=== PATIENT | male | born 1970 | race American Indian/Alaskan Native ===

== ENCOUNTER 2021-03-01 19:11 | Emergency (ER) | payer SELFPAY ==
--- NOTE | 2021-03-01 19:30 | Emergency Department Report ---
ED Seizure HPI - General Stated Complaint: SEIZURE Time Seen by Provider: 03/01/21 19:21 - History of Present Illness Initial Comments: Patient is 50 years old male with history of seizure on Keppra 750 mg twice daily. Patient brought to the emergency room via EMS from home for evaluation after a witnessed generalized tonic-clonic seizure. Patient stated that he went today to refill his Keppra. Patient denied any head injury. No fever or chills. Patient denied any headache, neck pain, weakness numbness or tingling sensation. MD Complaint: seizure -: Sudden Description of Episode: loss of consciousness, tonic-clonic movement, post-event confusion Witnessed:: Yes Trauma: No Seizure History: known seizure disorder Place: home Possible Precipitating Event: none Associated Symptoms: denies other symptoms Treatments Prior to Arrival: none - Related Data Allergies Allergy/AdvReac Type Severity Reaction Status Date / Time No Known Allergies Allergy Verified 03/01/21 19:39 ED Review of Systems ROS: Stated complaint: SEIZURE Other details as noted in HPI Comment: All other systems reviewed and negative Constitutional: denies: chills, fever Respiratory: denies: cough, shortness of breath, SOB with exertion Cardiovascular: denies: chest pain, palpitations Gastrointestinal: denies: abdominal pain, nausea, vomiting Musculoskeletal: denies: back pain Neurological: denies: headache, weakness ED Physical Exam - General General appearance: alert, in no apparent distress - Head Head exam: Present: atraumatic, normocephalic, normal inspection - Eye Eye exam: Present: normal appearance - ENT ENT exam: Present: normal exam, normal orophraynx, mucous membranes moist - Neck Neck exam: Present: normal inspection, full ROM. Absent: tenderness, meningismus - Respiratory Respiratory exam: Present: normal lung sounds bilaterally - Cardiovascular Cardiovascular Exam: Present: regular rate, normal rhythm, normal heart sounds - GI/Abdominal GI/Abdominal exam: Present: soft, normal bowel sounds. Absent: distended, tenderness, guarding, rebound, rigid, organomegaly, mass, bruit, pulsatile mass, hernia - Extremities Exam Extremities exam: Present: normal inspection, full ROM, normal capillary refill. Absent: tenderness, pedal edema, calf tenderness - Back Exam Back exam: Present: normal inspection, full ROM. Absent: CVA tenderness (R), CVA tenderness (L) - Neurological Exam Neurological exam: Present: alert, oriented X3, CN II-XII intact - Psychiatric Psychiatric exam: Present: normal mood - Skin Skin exam: Present: warm, intact, normal color ED Course Vital Signs 03/01/21 03/01/21 03/01/21 19:30 19:46 20:00 Temperature 97.9 F Pulse Rate 69 71 65 Respiratory 19 14 21 Rate Blood Pressure 122/83 126/87 129/82 Blood Pressure 122/83 [Right] O2 Sat by Pulse 98 98 100 Oximetry 03/01/21 03/01/21 20:16 20:30 Temperature Pulse Rate 64 68 Respiratory 19 17 Rate Blood Pressure 123/86 131/90 Blood Pressure [Right] O2 Sat by Pulse 99 100 Oximetry ED Medical Decision Making - Lab Data Result diagrams: 03/01/21 19:32 03/01/21 19:32 - Medical Decision Making Patient is 50 years old male with history of seizure on Keppra 750 mg twice daily. Patient brought to the emergency room via EMS from home for evaluation after a witnessed generalized tonic-clonic seizure. Patient stated that he went today to refill his Keppra. Patient denied any head injury. No fever or chills. Patient denied any headache, neck pain, weakness numbness or tingling sensation. Labs reviewed and is unremarkable. Patient received 1 g of Keppra IV. No seizure activity observed in the ER. Patient advised to be compliant with his medication. Patient advised to follow-up with his neurologist in the next 2 to 3 days and to return to the ER if he develop any new symptoms. Critical care attestation.: If time is entered above; I have spent that time in minutes in the direct care of this critically ill patient, excluding procedure time. ED Disposition Clinical Impression: Seizure Disposition: DC-01 TO HOME OR SELFCARE Is pt being admited?: No Condition: Stable Instructions: Seizure, Adult Referrals: PRIMARY CARE, [Primary Care Provider] - 3-5 Days
[2021-03-01] MEDS: levETIRAcetam 1000 MG/NS 0.75% 1,000 MG/100 ML BAG IV ONE ×2 (19:49→20:29)
[2021-03-01 20:00] LABS: Basophils # (Auto) 0.1 K/mm3 (0.0-0.1); Eosinophils % (Auto) 0.7 % (0.0-4.3); Lymphocytes # (Auto) 2.3 K/mm3 (1.2-5.4); Lymphocytes % (Auto) 40.8 % (13.4-35.0); Mean Corpuscular HGB Conc 33 % (32-34); Mean Corpuscular Volume 90 fl (84-94); Monocytes # (Auto) 0.3 K/mm3 (0.0-0.8); Monocytes % (Auto) 5.8 % (0.0-7.3); Platelet Count 265 K/mm3 (140-440); Red Blood Count 4.66 M/mm3 (3.65-5.03); Red Cell Distribution Width 14.4 % (13.2-15.2)
[2021-03-01 20:21] LABS: Alanine Aminotransferase 8 units/L (7-56); Albumin 3.8 g/dL (3.9-5); BUN/Creatinine Ratio 9; Blood Urea Nitrogen 11 mg/dL (9-20); Calcium 8.7 mg/dL (8.4-10.2); Hemolysis Index 21
[2021-03-01 20:26] LABS: Bilirubin,Direct < 0.2 mg/dL (0-0.2)
[2021-03-01 22:43] VITALS: BP 124/84
== END 2021-03-01 22:35 | disposition home or self-care (01) ==
LOC: ED 19:11
DX: R56.9 Unspecified convulsions (principal)
CPT/HCPCS: 36415; 80048; 80076; 85025; 96365; 99283; J1953

== ENCOUNTER 2021-11-14 01:42 | Emergency (ER) | payer SELFPAY ==
[2021-11-14 01:58] VITALS: BP 149/98
[2021-11-14] MEDS ORDERED: levETIRAcetam 500 MG TAB PO ONE (02:30)
--- NOTE | 2021-11-14 02:50 | Emergency Department Report ---
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 Presents emerged from today complaining of swelling to the inguinal region suggestive of a hernia presents with minimal pain. Also out of his Keppra which she states the primary reason for his visit today states he has a strong history of seizure disorder and has a prescription for Keppra but was unable to get it filled today so needs doses of his medication. Reports no marielle st pain no palpitation, no headache, no nausea, no vomiting, no fever, chills, sweats. No presyncope, no suicidal homicidal ideation no blurry vision. Reports no hematuria, no dysuria, no fever, chills, sweats - Related Data Allergies Allergy/AdvReac Type Severity Reaction Status Date / Time No Known Allergies Allergy Verified 03/01/21 19:39 ED Review of Systems ROS: Stated complaint: HERNIA PAIN LOWER ABDOMINAL Other details as noted in HPI Comment: All other systems reviewed and negative ED Past Medical Hx - Past Medical History Hx Seizures: Yes - Surgical History Additional Surgical History: umbilibal gernia repair - Social History Smoking Status: Current Every Day Smoker Substance Use Type: Marijuana ED Physical Exam - General Limitations: No Limitations General appearance: alert, in no apparent distress - Head Head exam: Present: atraumatic, normocephalic - Eye Eye exam: Present: normal appearance, PERRL, EOMI Pupils: Present: normal accommodation - ENT ENT exam: Present: normal exam, normal orophraynx, mucous membranes moist - Neck Neck exam: Present: normal inspection - Respiratory Respiratory exam: Present: normal lung sounds bilaterally. Absent: respiratory distress - Cardiovascular Cardiovascular Exam: Present: regular rate, normal rhythm. Absent: systolic murmur, diastolic murmur, rubs, gallop - GI/Abdominal GI/Abdominal exam: Present: soft, normal bowel sounds, other (Right inguinal hernia reducible no complications. Patient had a hernia belt partially stripped) - Rectal Rectal exam: Present: deferred - Extremities Exam Extremities exam: Present: normal inspection - Back Exam Back exam: Present: normal inspection - Neurological Exam Neurological exam: Present: alert, oriented X3 - Psychiatric Psychiatric exam: Present: normal affect, normal mood - Skin Skin exam: Present: warm, dry, intact, normal color. Absent: rash ED Course Vital Signs 11/14/21 01:57 Temperature 97.8 F Pulse Rate 73 Respiratory 18 Rate Blood Pressure 149/98 [Left] O2 Sat by Pulse 98 Oximetry Critical care attestation.: If time is entered above; I have spent that time in minutes in the direct care of this critically ill patient, excluding procedure time. ED Disposition Clinical Impression: Inguinal hernia, History of seizure disorder Disposition: HOME / SELF CARE / HOMELESS Is pt being admited?: No Does the pt Need Aspirin: No Condition: Stable Instructions: Inguinal Hernia, Adult, [id number] Referrals: [facility] [Provider Group] - 3-5 Days
== END 2021-11-14 03:00 | disposition home or self-care (01) ==
LOC: ED 01:42
DX: K40.90 Unilateral inguinal hernia, without obstruction or gangrene, not specified as recurrent (principal)
CPT/HCPCS: 99283